=== PATIENT | female | born 1970 | race Caucasian/White ===

== ENCOUNTER 2016-11-10 18:25 | Emergency (ER) | payer MEDICAID ==
[~2016-11-10] VITALS: Ht 152.4 cm; Wt 68.0 kg
[2016-11-10 19:09] VITALS: BP 157/108
--- NOTE | 2016-11-10 20:33 | NUR ---
PT TAKEN TO BED 1
--- NOTE | 2016-11-10 20:53 | NUR ---
Dr. Brown evaluating patient at bedside.
[2016-11-10] MEDS ORDERED: ONDANSETRON 4 MG/2 ML VIAL IVP ONE (21:00)
[2016-11-10] MEDS ORDERED: MORPHINE SULFATE 2 MG/ML SYR IVP ONE (21:00)
--- NOTE | 2016-11-10 21:04 | NUR ---
46Y/F PT BIB FAMILY TO ED WITH C/O ABDOMINAL PAIN X 1 DAY. PATIENT STATES PAIN THIS MORNING WITH EPISODE OF N/V, DENIES DIARRHEA; SKIN IS PINK/WARM/DRY; AAOX4 WITH EVEN AND STEADY GAIT; LUNGS CLEAR BL; HR EVEN AND REGULAR; PT DENIES ANY FEVER, CP, SOB, OR COUGH AT THIS TIME; ABDOMEN ROUND, NON-DISTENDED, HYPOACTIVE BOWEL SOUND X 4, PATIENT STATES PAIN OF 10/10 AT THIS TIME; VSS; PATIENT POSITIONED FOR COMFORT; HOB ELEVATED; BEDRAILS UP X2; BED DOWN. ER MD MADE AWARE OF PT STATUS.
[2016-11-10] MEDS ORDERED: cefTRIAXone 250 MG in LIDOCAINE 1% ED 0.9 ML IM ONE (21:40)
[2016-11-10] MEDS ORDERED: MORPHINE SULFATE 4 MG/ML SYR IVP ONE ×2 (21:40→22:20)
[2016-11-10 23:18] VITALS: BP 148/82
--- NOTE | 2016-11-10 23:18 | NUR ---
Patient discharged with v/s stable. Written and verbal after care instructions given and explained. Patient alert, oriented and verbalized understanding of instructions. Ambulatory with steady gait. All questions addressed prior to discharge. ID band removed. Patient advised to follow up with PMD. Rx of FLAGYL 500 MG, ZOFRAN 4 MG, NORCO 5/325 MG, DOXYCLYCLINE 100 MG, DIFLUCAN 150 MG given. Patient educated on indication of medication including possible reaction and side effects. Opportunity to ask questions provided and answered.
== END 2016-11-10 23:18 | disposition home or self-care (01) ==
LOC: MED 18:25
DX: N73.9 Female pelvic inflammatory disease, unspecified (principal); R06.02 Shortness of breath; Z88.6 Allergy status to analgesic agent
CPT/HCPCS: 36415; 74176; 80053; 81001; 81025; 83690; 85025; 87086; 87210; 96372; 96374; 96375; 96376; 99285; J0696; J2001; J2270; J2405

== ENCOUNTER 2017-03-04 09:17 | Emergency (ER) | payer SELFPAY ==
[~2017-03-04] VITALS: Ht 152.4 cm; Wt 70.3 kg
[2017-03-04 09:21] VITALS: BP 155/97
--- NOTE | 2017-03-04 09:26 | NUR ---
Patient ambulated to bed 4. RN evaluating patient at bedside.
--- NOTE | 2017-03-04 09:30 | NUR ---
PT PRESENTS TO ER W/C/O N/V/D AND LBP X3 DAYS. HX RA; SKIN IS PINK/WARM/DRY; AAOX4 WITH EVEN AND STEADY GAIT; LUNGS CLEAR BL; HR EVEN AND REGULAR; PT DENIES ANY FEVER, CP, SOB, OR COUGH AT THIS TIME; PATIENT STATES PAIN OF 9/10 AT THIS TIME; VSS; PATIENT POSITIONED FOR COMFORT; HOB ELEVATED; BEDRAILS UP X2; BED DOWN. ER MD MADE AWARE OF PT STATUS.
--- NOTE | 2017-03-04 09:43 | NUR ---
Dr. Lee evaluating patient at bedside.
[2017-03-04] MEDS ORDERED: NACL 0.9% 1,000 ML IV ONE (09:50)
[2017-03-04] MEDS ORDERED: MORPHINE SULFATE 4 MG/ML SYR IVP ONE ×2 (09:50→12:40)
[2017-03-04] MEDS ORDERED: ONDANSETRON 4 MG/2 ML VIAL IVP ONE (09:50)
[2017-03-04 10:14] LABS: ANION GAP 15.6 (8-16); BASOPHILS # (AUTO) 0.2 K/uL (0.00-0.22); BASOPHILS % (AUTO) 3.7 % (0.0-2.0); CALCIUM 9.2 mg/dL (8.5-10.1); CARBON DIOXIDE 23.8 mmol/L (21-32); CREATININE 0.6 mg/dL (0.6-1.3); EOSINOPHILS # (AUTO) 0.1 K/uL (0-0.4); EOSINOPHILS % (AUTO) 2.6 % (0.0-4.0); HEMATOCRIT 38.2 % (36-48); HEMOGLOBIN 12.8 g/dL (12.0-16.0); LYMPHOCYTES # (AUTO) 2.1 K/uL (2.5-16.5); LYMPHOCYTES % (AUTO) 36.8 % (20.5-51.1); MEAN CORPUSCULAR HEMOGLOBIN 31 pg (27-31); MEAN CORPUSCULAR HGB CONC 34 g/dL (33-37); MEAN CORPUSCULAR VOLUME 92 fL (80-94); MONOCYTES # (AUTO) 0.3 K/uL (0.8-1.0); MONOCYTES % (AUTO) 4.7 % (1.7-9.3); NEUTROPHILS # (AUTO) 2.9 K/uL (1.8-7.7); NEUTROPHILS % (AUTO) 52.2 % (42.2-75.2); PLATELET COUNT (AUTO) 288 K/uL (140-450); POTASSIUM 3.4 mmol/L (3.5-5.1); RED BLOOD CELL COUNT(AUTO) 4.13 MIL/uL (4.20-5.40); RED CELL DISTRIBUTION WIDTH 13.9 % (11.6-13.7); WHITE BLOOD COUNT (AUTO) 5.6 K/uL (4.8-10.8)
[2017-03-04 10:20] LABS: ALBUMIN 3.8 g/dL (3.4-5.0); TOTAL BILIRUBIN 0.3 mg/dL (0.0-1.0)
[2017-03-04 10:24] LABS: PARTIAL THROMBOPLASTIN TIME 27.7 secs (22-35.6); PROTHROMBIN TIME 10.6 secs (10.8-13.4)
--- NOTE | 2017-03-04 11:12 | NUR ---
PT AMBULATES TO THE RESTROOM FOR URINE SAMPLE
--- NOTE | 2017-03-04 11:20 | NUR ---
2ND 4MG MORPHINE GIVEN IV RIGHT AC 20G PER VERBAL ORDER DR XIAO D/T PT C/O PAIN
--- NOTE | 2017-03-04 11:30 | NUR ---
ALM[facility] PT TAKEN OFF THE UNIT FOR CT VIA WHEEL CHAIR BY REJI TRIPP
[2017-03-04 12:01] LABS: BILIRUBIN,URINE NEGATIVE (NEGATIVE); BLOOD, URINE NEGATIVE (NEGATIVE); COLOR,URINE YELLOW (YELLOW); LEUKOCYTE ESTERASE ,URINE TRACE (NEGATIVE); NITRITE, URINE NEGATIVE (NEGATIVE); PROTEIN,URINE NEGATIVE (NEGATIVE); UGLUCOSE NEGATIVE (NEGATIVE); UROBILINOGEN,URINE 0.2 EU/dL (0.2 - 1)
[2017-03-04 12:08] LABS: APPEARANCE,URINE HAZY (CLEAR)
[2017-03-04 12:09] LABS: RBC,URINE 0-3 /HPF (0-5)
[2017-03-04 12:10] LABS: BACTERIA,URINE 1+ /HPF (None Seen); MUCUS,URINE 2+ /LPF (None Seen)
[2017-03-04] MEDS ORDERED: HYDROcodone/APAP 10/325 MG 1 TAB TAB PO ONE (12:40)
[2017-03-04] MEDS ORDERED: cefTRIAXone 1,000 MG VIAL ONE (12:48)
[2017-03-04 13:38] VITALS: BP 120/73
--- NOTE | 2017-03-04 13:38 | NUR ---
Patient discharged with v/s stable. Written and verbal after care instructions given and explained. Patient alert, oriented and verbalized understanding of instructions. Ambulatory with steady gait. All questions addressed prior to discharge. ID band removed. Patient advised to follow up with PMD. Rx of NORCO, CIPRO given. Patient educated on indication of medication including possible reaction and side effects. Opportunity to ask questions provided and answered.
== END 2017-03-04 13:38 | disposition home or self-care (01) ==
LOC: MED 09:18
DX: N12 Tubulo-interstitial nephritis, not specified as acute or chronic (principal); R19.7 Diarrhea, unspecified; Z88.3 Allergy status to other anti-infective agents; Z90.49 Acquired absence of other specified parts of digestive tract
CPT/HCPCS: 36415; 74177; 80053; 81001; 83690; 85025; 85610; 85730; 87086; 93005; 96361; 96365; 96375; 96376; 99285; J0696; J2270; J2405; J7030; Q9967

== ENCOUNTER 2017-03-05 11:06 | Emergency (ER) | payer MEDICAID ==
[~2017-03-05] VITALS: Ht 152.4 cm; Wt 68.0 kg
[2017-03-05 11:22] VITALS: BP 152/96
[2017-03-05] MEDS ORDERED: NACL 0.9% 1,000 ML IV SCH (11:37)
[2017-03-05] MEDS ORDERED: ONDANSETRON 4 MG/2 ML VIAL IVP ONE (11:40)
[2017-03-05 11:53] LABS: BASOPHILS # (AUTO) 0.3 K/uL (0.00-0.22); EOSINOPHILS # (AUTO) 0.2 K/uL (0-0.4); EOSINOPHILS % (AUTO) 3.5 % (0.0-4.0); HEMATOCRIT 40.2 % (36-48); HEMOGLOBIN 13.2 g/dL (12.0-16.0); LYMPHOCYTES # (AUTO) 2.5 K/uL (2.5-16.5); LYMPHOCYTES % (AUTO) 38.9 % (20.5-51.1); MEAN CORPUSCULAR HEMOGLOBIN 31 pg (27-31); MEAN CORPUSCULAR HGB CONC 33 g/dL (33-37); MEAN CORPUSCULAR VOLUME 93 fL (80-94); MONOCYTES # (AUTO) 0.2 K/uL (0.8-1.0); MONOCYTES % (AUTO) 3.1 % (1.7-9.3); NEUTROPHILS # (AUTO) 3.2 K/uL (1.8-7.7); NEUTROPHILS % (AUTO) 50.5 % (42.2-75.2); PLATELET COUNT (AUTO) 326 K/uL (140-450); RED BLOOD CELL COUNT(AUTO) 4.32 MIL/uL (4.20-5.40); RED CELL DISTRIBUTION WIDTH 14.6 % (11.6-13.7); WHITE BLOOD COUNT (AUTO) 6.4 K/uL (4.8-10.8)
--- NOTE | 2017-03-05 11:53 | NUR ---
Patient ambulated to bed 8. RN evaluating patient at bedside.
--- NOTE | 2017-03-05 11:54 | NUR ---
47/F BIB C/O VOMITING & ABD PAIN . PT STATES SHE WAS SEEN IN ER LAST NOC FOR SAME S/SX AND THEY HAVE NOT IMPROVED. HX RA.PT DENIES N/V/D; SKIN IS PINK/WARM/DRY; AAOX4 WITH EVEN AND STEADY GAIT; LUNGS CLEAR BL; HR EVEN AND REGULAR; PT DENIES ANY FEVER, CP, SOB, OR COUGH AT THIS TIME; PATIENT STATES PAIN OF 9/10 AT THIS TIME; VSS; PATIENT POSITIONED FOR COMFORT; HOB ELEVATED; BEDRAILS UP X2; BED DOWN. ER MD MADE AWARE OF PT STATUS.
[2017-03-05 12:16] LABS: ANION GAP 14.9 (8-16); CALCIUM 9.3 mg/dL (8.5-10.1); CARBON DIOXIDE 24.9 mmol/L (21-32); CREATININE 0.5 mg/dL (0.6-1.3); POTASSIUM 3.8 mmol/L (3.5-5.1)
[2017-03-05 12:22] LABS: ALBUMIN 3.9 g/dL (3.4-5.0); TOTAL BILIRUBIN 0.4 mg/dL (0.0-1.0); TOTAL PROTEIN, SERUM 8.2 g/dL (6.4-8.2)
[2017-03-05] MEDS ORDERED: MORPHINE SULFATE 4 MG/ML SYR IVP ONE (12:25)
--- NOTE | 2017-03-05 12:25 | NUR ---
C/O PAIN 05/29 ;NOTIFIED DR FRANCO. MORPHINE ORDERED.
--- NOTE | 2017-03-05 13:10 | NUR ---
PAIN 6/10Patient appears to be resting comfortably in bed. Vital Signs within normal limits. Respirations even and unlabored. WILL CONTINUE TO MONITOR.
--- NOTE | 2017-03-05 14:25 | NUR ---
Note enio in EDM - 03/05/17 at 1431 by [facility] Patient discharged with v/s stable. Written and verbal after care instructions given and explained. Patient alert, oriented and verbalized understanding of instructions. Ambulatory with steady gait. All questions addressed prior to discharge. ID band removed. Patient advised to follow up with PMD. Rx of ZOFRAN ODTN & TYLENOL WITH CODEINE NO 3 given. Patient educated on indication of medication including possible reaction and side effects. Opportunity to ask questions provided and answered.
[2017-03-05 14:30] VITALS: BP 132/89
--- NOTE | 2017-03-05 14:30 | NUR ---
Patient discharged with v/s stable. Written and verbal after care instructions given and explained. Patient alert, oriented and verbalized understanding of instructions. Ambulatory with steady gait. All questions addressed prior to discharge. ID band removed. Patient advised to follow up with PMD. Rx of NORCO AND ZOFRAN given. Patient educated on indication of medication including possible reaction and side effects. Opportunity to ask questions provided and answered.
[2017-03-05 15:27] LABS: APPEARANCE,URINE HAZY (CLEAR); BILIRUBIN,URINE NEGATIVE (NEGATIVE); BLOOD, URINE NEGATIVE (NEGATIVE); COLOR,URINE YELLOW (YELLOW); LEUKOCYTE ESTERASE ,URINE 1+ (NEGATIVE); NITRITE, URINE NEGATIVE (NEGATIVE); PROTEIN,URINE NEGATIVE (NEGATIVE); UGLUCOSE NEGATIVE (NEGATIVE); UROBILINOGEN,URINE 0.2 EU/dL (0.2 - 1)
[2017-03-05 15:38] LABS: BACTERIA,URINE 1+ /HPF (None Seen); RBC,URINE NONE SEEN /HPF (0-5); SQUAMOUS EPITHELIAL CELL,UR 4-10 (MOD) /LPF (0-3 (FEW)); WBC,URINE 6-15 (FEW) /HPF (0-5)
== END 2017-03-05 14:25 | disposition home or self-care (01) ==
LOC: MED 11:06
DX: R10.9 Unspecified abdominal pain (principal); R11.2 Nausea with vomiting, unspecified; Z88.1 Allergy status to other antibiotic agents; Z90.89 Acquired absence of other organs; Z90.49 Acquired absence of other specified parts of digestive tract
CPT/HCPCS: 36415; 80053; 81001; 82150; 83690; 85025; 87086; 96361; 96374; 96375; 99285; J2270; J2405; J7030

== ENCOUNTER 2017-03-31 09:18 | Emergency (ER) | payer MEDICAID ==
[~2017-03-31] VITALS: Ht 152.4 cm; Wt 65.3 kg
[2017-03-31 09:26] VITALS: BP 165/107
--- NOTE | 2017-03-31 09:33 | NUR ---
Patient ambulated to bed 06.
--- NOTE | 2017-03-31 09:44 | NUR ---
PATIENT PRESENTS TO ED WITH C/O N/V/D AND ABDOMINAL CRAMPING X2 DAYS WITH VAGINAL SPOTTING. HX RHEUMATOID ARTHRITIS. C/O 9/10 PAIN AND TOOK TYLENOL AND IBUPROFEN.SKIN IS PINK/WARM/DRY; AAOX4 WITH EVEN AND STEADY GAIT; LUNGS CLEAR BL; HR EVEN AND REGULAR; PT DENIES ANY FEVER, CP, SOB, OR COUGH AT THIS TIME; PATIENT STATES PAIN OF 9/10 AT THIS TIME; PATIENT POSITIONED FOR COMFORT; HOB ELEVATED; BEDRAILS UP X2; BED DOWN. ALLMONITORS IN PLACED.
--- NOTE | 2017-03-31 09:51 | NUR ---
DR DAO AT BEDSIDE.
[2017-03-31 10:09] LABS: HEMATOCRIT 39.1 % (36-48); HEMOGLOBIN 13.2 g/dL (12.0-16.0); MEAN CORPUSCULAR HEMOGLOBIN 31 pg (27-31); MEAN CORPUSCULAR HGB CONC 34 g/dL (33-37); MEAN CORPUSCULAR VOLUME 93 fL (80-94); PLATELET COUNT (AUTO) 292 K/uL (140-450); RED BLOOD CELL COUNT(AUTO) 4.22 MIL/uL (4.20-5.40); RED CELL DISTRIBUTION WIDTH 14.8 % (11.6-13.7); WHITE BLOOD COUNT (AUTO) 6.3 K/uL (4.8-10.8)
[2017-03-31 10:11] LABS: APPEARANCE,URINE CLEAR (CLEAR); BILIRUBIN,URINE NEGATIVE (NEGATIVE); BLOOD, URINE TRACE-I (NEGATIVE); COLOR,URINE YELLOW (YELLOW); LEUKOCYTE ESTERASE ,URINE NEGATIVE (NEGATIVE); NITRITE, URINE NEGATIVE (NEGATIVE); PROTEIN,URINE NEGATIVE (NEGATIVE); UGLUCOSE NEGATIVE (NEGATIVE); UROBILINOGEN,URINE 0.2 EU/dL (0.2 - 1)
[2017-03-31 10:19] LABS: ANION GAP 12.3 (8-16); CALCIUM 8.8 mg/dL (8.5-10.1); CREATININE 0.5 mg/dL (0.6-1.3); POTASSIUM 3.3 mmol/L (3.5-5.1)
[2017-03-31 10:25] LABS: RBC,URINE 0-5 (RARE) /HPF (0-5); WBC,URINE 0-5 (RARE) /HPF (0-5)
[2017-03-31 10:25] LABS: ALBUMIN 3.7 g/dL (3.4-5.0); TOTAL BILIRUBIN 0.4 mg/dL (0.0-1.0); TOTAL PROTEIN, SERUM 7.5 g/dL (6.4-8.2)
[2017-03-31 10:26] LABS: BACTERIA,URINE 1+ /HPF (None Seen); SQUAMOUS EPITHELIAL CELL,UR 4-10 (MOD) /LPF (0-3 (FEW))
[2017-03-31 10:32] LABS: EOSINOPHILS % (MANUAL) 4 % (0-4); LYMPHOCYTES % (MANUAL) 41 % (20-46); MONOCYTES % (MANUAL) 3 % (5-12); NEUTROPHILS % (MANUAL) 52 (43-65)
--- NOTE | 2017-03-31 10:45 | NUR ---
PT C/O PAIN;STATES 9/10 PAIN SCALE;RLQ GUARDING NOTED;POSITIONED PT TO COMFORTABLE POSITION;DR DAO NOTIFIED;WILL CONTINUE TO MONITOR PT.
--- NOTE | 2017-03-31 11:15 | NUR ---
PT STATES" I'M GONNA LEAVE IN 10 MINUETES IF WON'T GIVE ME MEDICNES"EXPALINE TO PT THAT IS BUSY AND AND HE'S DOING HIS BEST TO ATTEND TO HER NEEDS A SOON POSSIBLE;NOTIFIED CHARGE NURSE;NOTIFIED ER MD.
--- NOTE | 2017-03-31 11:27 | NUR ---
NOTIFIED CHARGE NURSE ABOUT PAIN COMPLAIN OF PT;NOTIFIED ER MD;
[2017-03-31] MEDS ORDERED: HYDROmorphone 1 MG/ML AMP IVP ONE (11:40)
[2017-03-31] MEDS ORDERED: NACL 0.9% 1,000 ML IV ONE (11:50)
[2017-03-31] MEDS ORDERED: ONDANSETRON 4 MG/2 ML VIAL IVP ONE (11:50)
--- NOTE | 2017-03-31 11:58 | NUR ---
IVF AND PAIN MEDS STARTED;PT IS GRATEFUL;ALL MONITORS IN PALCED;WILL CONTINUE TO MONITOR PT.
--- NOTE | 2017-03-31 12:55 | NUR ---
PT SITTING ON CHAIR;ADVISED PT TO LAY ON THE BED;EXPALINED TO PT THAT HE MIGHT FEEL DIZZY AND FALL;BUT PT REFUSES TO GO TO BED;WILL CONTINUE TO MONIOR PT.
--- NOTE | 2017-03-31 12:55 | NUR ---
PT IN ULTRASOUND.
--- NOTE | 2017-03-31 13:08 | NUR ---
PT CAME FROM
--- NOTE | 2017-03-31 13:25 | NUR ---
PT C/O PAIN;AFCIAL GRIMMACING NOTED;REPOSITIONED PT;DR DAO NOTIFIED;AWAITING NEW OREDERS;ALL MONITORS IN PLACED;WILL CONTINUE TO MONITOR PT.
--- NOTE | 2017-03-31 14:09 | NUR ---
POSITIONED PT TO COMFORT POSITION;PT STATES SHE'S IN PAIN;ER MD MADE AWARE;ALL MONITORS IN PLACED;SAFETY MEASURES DONE;WILL CONTINUE TO MONITOR PT.
--- NOTE | 2017-03-31 14:40 | NUR ---
PT STILL C/O ABDOMINAL PAIN;POSITIONED PT TO COMFORT;ER MD NOTIFIED;
[2017-03-31 14:45] VITALS: BP 136/81
--- NOTE | 2017-03-31 15:20 | NUR ---
PT WENT OUT OF ER W/ IV ON W/O NOTIFYING STAFF;LA NENA GALLAGHER CALLED HER ON HER CELLPHONE INFORMED THAT SHE WAS OUTSIDE IN HER CAR AND SHE SAID SHE IS COMING BACK TO ER;LOOKED /SEARCHED PT OUTSIDE BUT PT CANNOT BE FOUND.
--- NOTE | 2017-03-31 15:38 | NUR ---
TRIED TO CALL PT W/ HER PHONE 4X PT IS NOT ANSWERING;ER NOTIFIED;
--- NOTE | 2017-03-31 15:51 | NUR ---
STORE SALES CONSULTANT CALLED FRANCISCO JOHNS.PT CAME BACK TO ER;NOTIFIED ER MD;PT STATES SHE WENT OUTSIDE W/ HER AND IS FURIUS ABOUT IT"REMOVED IV CATHETER AND WRIST BAND;TALKED TO PT AND EXPALINED TO HER THAT SHE SHOUDN'T DO THAT AND INFORMED THE STAFF IF SHE IS GOING OUT;PT APOLOGIZES AND STILL GRATEFUL OF THE SERVICE RENDERED HERE IN ER.
== END 2017-03-31 15:51 | disposition left against medical advice (07) ==
LOC: MED 09:18
DX: R10.31 Right lower quadrant pain (principal); R11.2 Nausea with vomiting, unspecified; R19.7 Diarrhea, unspecified; Z88.6 Allergy status to analgesic agent; F17.210 Nicotine dependence, cigarettes, uncomplicated; M06.9 Rheumatoid arthritis, unspecified
CPT/HCPCS: 36415; 76830; 76856; 80053; 81001; 81025; 82150; 83690; 85025; 96361; 96374; 96375; 99285; J1170; J2405; J7030

== ENCOUNTER 2018-04-22 13:46 | Emergency (ER) | payer SELFPAY ==
[~2018-04-22] VITALS: Ht 152.4 cm; Wt 66.7 kg
[2018-04-22 13:55] VITALS: BP 173/106
--- NOTE | 2018-04-22 14:06 | NUR ---
WAITING FOR BED AVAILABLE AT [facility].
--- NOTE | 2018-04-22 14:27 | NUR ---
pt ambulated to bed 8.
--- NOTE | 2018-04-22 14:30 | NUR ---
C/O MID LOWER BACK PAIN RADIATING TO RIGHT LOWER BACK X 3 DAYS. HX: RA. DENIES N/V/D; SKIN IS PINK/WARM/DRY; AAOX4 WITH EVEN AND STEADY GAIT; LUNGS CLEAR BL; HR EVEN AND REGULAR; PT DENIES ANY FEVER, CP, SOB, OR COUGH AT THIS TIME; PATIENT STATES PAIN OF 9/10 AT THIS TIME; VSS; PATIENT POSITIONED FOR COMFORT; HOB ELEVATED; BEDRAILS UP X2; BED DOWN. ER MD MADE AWARE OF PT STATUS.
[2018-04-22] MEDS ORDERED: MORPHINE SULFATE 2 MG/ML SYR IM ONE (15:05)
[2018-04-22] MEDS: diphenhydrAMINE 50 MG/ML VIAL IM ONE ×2 (15:10→15:19)
--- NOTE | 2018-04-22 15:16 | NUR ---
PT REFUSED BENADRYL, EDMD MADE AWARE.
[2018-04-22 15:52] VITALS: BP 148/90
--- NOTE | 2018-04-22 15:52 | NUR ---
Patient discharged with v/s stable. Written and verbal after care instructions given and explained. Patient verbalized understanding. Ambulatory with steady gait. All questions addressed prior to discharge. Advised to follow up with PMD.
== END 2018-04-22 15:52 | disposition home or self-care (01) ==
LOC: MED 13:46
DX: G89.29 Other chronic pain (principal); M54.5 Low back pain; M19.90 Unspecified osteoarthritis, unspecified site; Z88.8 Allergy status to other drugs, medicaments and biological substances
CPT/HCPCS: 96372; 99283; J1200; J2270

== ENCOUNTER 2018-05-23 11:40 | Emergency (ER) | payer SELFPAY ==
--- NOTE | 2018-05-23 11:45 | NUR ---
NO ANSWER IN ER LOBBY
--- NOTE | 2018-05-23 12:10 | NUR ---
NO ANSWER IN ER LOBBY
== END 2018-05-23 12:10 | disposition left against medical advice (07) ==
LOC: MED 11:40
DX: Z53.21 Procedure and treatment not carried out due to patient leaving prior to being seen by health care provider (principal)

== ENCOUNTER 2018-11-01 13:13 | Emergency (ER) | payer SELFPAY ==
[~2018-11-01] VITALS: Ht 152.4 cm; Wt 68.0 kg
[2018-11-01 13:31] VITALS: BP 179/112
--- NOTE | 2018-11-01 14:15 | NUR ---
PT AMBULATED TO ER BED 12
--- NOTE | 2018-11-01 14:20 | NUR ---
48 Y/O F BIB SELF WITH C/O LOWER BACK PAIN X 3 DAYS. PT STATES SHE IS HAVING A SCIATICA FLARE UP. PT DENIES N/V/D; AAOX4, PERRL, WITH EVEN AND STEADY GAIT; LUNGS CLEAR BL, BREATHING UNLABORED; HR EVEN AND REGULAR, BL PERIPHERAL PULSES PRESENT; BS ACTIVE X4, NO TENDERNESS TO PALPATION, NO HEPATOSPLENOMEGALLY PALPATED, RESONANT TO PERCUSSION; PT DENIES ANY FEVER, CP, SOB, OR COUGH AT THIS TIME; PT STATES 10/10 PAIN AT THIS TIME; VSS; PATIENT POSITIONED FOR COMFORT; HOB ELEVATED; BEDRAILS UP X2; BED DOWN. PMH: SCIATICA, HTN RX: GABAPENTIN
[2018-11-01] MEDS ORDERED: diphenhydrAMINE 50 MG/ML VIAL IM ONE (15:25)
[2018-11-01] MEDS ORDERED: HYDROmorphone PFS 2 MG/ML SYR IM ONE (15:25)
[2018-11-01 16:05] VITALS: BP 152/97
--- NOTE | 2018-11-01 16:05 | NUR ---
Patient discharged with v/s stable. Written and verbal after care instructions given and explained. Patient alert, oriented and verbalized understanding of instructions. Ambulatory with steady gait. All questions addressed prior to discharge. ID band removed. Patient advised to follow up with PMD. Rx of PERCOCET given. Patient educated on indication of medication including possible reaction and side effects. Opportunity to ask questions provided and answered.
== END 2018-11-01 16:05 | disposition home or self-care (01) ==
LOC: MED 13:13
DX: M54.41 Lumbago with sciatica, right side (principal); I10 Essential (primary) hypertension; Z88.6 Allergy status to analgesic agent; Z88.5 Allergy status to narcotic agent; M06.9 Rheumatoid arthritis, unspecified
CPT/HCPCS: 96372; 99283; J1170; J1200

== ENCOUNTER 2018-11-05 20:35 | Emergency (ER) | payer SELFPAY ==
[~2018-11-05] VITALS: Ht 152.4 cm; Wt 70.3 kg
[2018-11-05 20:48] VITALS: BP 139/98
--- NOTE | 2018-11-05 20:52 | NUR ---
PT TRIAGED AND SENT TO ER LOBBY. VSS.
--- NOTE | 2018-11-05 21:14 | NUR ---
PT AMBULATED TO BED 2
--- NOTE | 2018-11-05 21:25 | NUR ---
PT BIB FAMILY FOR LOWER BACK PAIN. PT REPORTS 9/10 SHARP STABING PAIN IN MEDIAL LOWER BACK THAT RADIATES TO THOBING PAIN DOWN R LEG. PT REPORTS BEING SEEN IN ED AT [facility] ON 11/01 FOR SAME REASON, PT REPORTS HAVING AN APPOINTMENT WITH SEPCIALIST ON 11/09, BUT PAIN HAS BECOME UNBEARABLE. VSS. ER MD TO SEE PT. SIDE RAILS UP X1, HOB ELEVATED, BED IN LOWEST POSTION. [facility] MEDHX: RA, HTN, SCIATICA, DEGENERTIVE DISK DISEASE RX: AMLODIPINE, METHOTREXATE, GABAPENTIN, PERCOCET
[2018-11-05] MEDS ORDERED: DIAZEPAM 5 MG TAB PO ONE (21:45)
--- NOTE | 2018-11-05 22:00 | NUR ---
Patient discharged with v/s stable. Written and verbal after care instructions given and explained. Patient alert, oriented and verbalized understanding of instructions. Ambulatory with steady gait. All questions addressed prior to discharge. ID band removed. Patient advised to follow up with PMD. Rx of Valium given. Patient educated on indication of medication including possible reaction and side effects. Opportunity to ask questions provided and answered.
[2018-11-05 22:03] VITALS: BP 128/95
== END 2018-11-05 22:00 | disposition home or self-care (01) ==
LOC: MED 20:35
DX: M54.41 Lumbago with sciatica, right side (principal); I10 Essential (primary) hypertension; Z88.6 Allergy status to analgesic agent
CPT/HCPCS: 99283